=== PATIENT | female | born 2000 | race Two or more races ===

== ENCOUNTER 2019-01-28 19:26 | Emergency (ER) | payer OTHER ==
[~2019-01-28] VITALS: Ht 172.7 cm; Wt 74.4 kg
[2019-01-29] MEDS ORDERED: DOLOGESIC 500-1 EACH PO (01:54)
[2019-01-29] MEDS ORDERED: HEMATOGEN FORT1 EACH PO (01:55)
== END 2019-01-29 02:03 ==
LOC: ER 19:26
DX: R11.11 Vomiting without nausea (principal); R51 Headache

== ENCOUNTER → 2019-02-08 | Emergency (ER) | payer OTHER ==
[~2019-02-08] VITALS: Ht 172.7 cm; Wt 76.2 kg
[~2019-02-08] MED LIST: DOLOGESIC 500-1 EACH PO; HEMATOGEN FORT1 EACH PO
== END | disposition home or self-care (01) ==
LOC: ER 14:41
DX: E86.0 Dehydration (principal); D64.9 Anemia, unspecified

== ENCOUNTER 2021-01-13 12:57 | Emergency (ER) | payer OTHER ==
[~2021-01-13] VITALS: Ht 172.7 cm; Wt 80.7 kg
== END 2021-01-13 17:07 | disposition home or self-care (01) ==
LOC: ER 12:57
DX: B34.9 Viral infection, unspecified (principal); Z03.818 Encounter for observation for suspected exposure to other biological agents ruled out